=== PATIENT | female | born 2000 | race African-American/Black ===

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

== ENCOUNTER 2019-07-31 16:36 | Emergency (ER) | payer MEDICAID, OTHER ==
[~2019-07-31] VITALS: Ht 160 cm; Wt 42.6 kg
[~2019-07-31 16:36] MED LIST: CETI-90 PO; HYDR28CR14 TOP
[2019-07-31 16:38] VITALS: BP 112/65
[2019-07-31] MEDS ORDERED: IBUP-1984 PO (17:40)
[2019-07-31] MEDS ORDERED: AMOX-422 PO (17:40)
== END 2019-07-31 17:49 | disposition home or self-care (01) ==
LOC: ER 16:37
DX: K11.20 Sialoadenitis, unspecified (principal); Z88.8 Allergy status to other drugs, medicaments and biological substances; Z79.2 Long term (current) use of antibiotics; Z79.899 Other long term (current) drug therapy
CPT/HCPCS: 99283

== ENCOUNTER 2021-01-09 18:51 | Emergency (ER) | payer MEDICAID ==
[~2021-01-09] VITALS: Ht 160 cm; Wt 45.0 kg
[2021-01-09 19:12] VITALS: BP 129/79
[2021-01-09] MEDS ORDERED: CefTRIAXone 1000mg IM Kit (w/lidocaine diluent) IM ONE (19:15)
[2021-01-09] MEDS ORDERED: azithromycin 250mg tablet PO ONE (19:15)
[2021-01-09 19:44] LABS: URINE HCG NEGATIVE (NEG)
[2021-01-09 19:51] LABS: CLARITY,URINE CLOUDY (Clear); COLOR,URINE YELLOW (Yellow); GLUCOSE, URINE NEGATIVE (Neg); KETONES,URINE NEGATIVE (Neg); LEUKOCYTE ESTERASE ,URINE SMALL (Neg); NITRITES, URINE NEGATIVE (Neg); OCCULT BLOOD,URINE NEGATIVE (Neg); PROTEIN,URINE NEGATIVE (Neg); UA COLLECTION TYPE VOIDED; UROBILINOGEN,URINE 0.2 E.U/dL (0.2-1.0)
[2021-01-09 20:00] LABS: MUCUS STRANDS MODERATE /LPF (Neg); SQUAMOUS EPITHELIAL CELL,UR MANY /LPF (FEW)
[2021-01-09 20:03] LABS: BACTERIA,URINE 3+ /HPF (Neg)
== END 2021-01-09 21:56 | disposition home or self-care (01) ==
LOC: ER 18:52
DX: A64 Unspecified sexually transmitted disease (principal); N93.9 Abnormal uterine and vaginal bleeding, unspecified; R10.30 Lower abdominal pain, unspecified; R53.83 Other fatigue; M54.5 Low back pain; Z88.6 Allergy status to analgesic agent; Z79.899 Other long term (current) drug therapy
CPT/HCPCS: 36415; 81001; 81025; 87491; 87591; 96372; 99283; J0696

== ENCOUNTER 2021-07-06 12:40 | Emergency (ER) | payer MEDICAID ==
[~2021-07-06] VITALS: Ht 160 cm; Wt 45.9 kg
[2021-07-06 12:50] VITALS: BP 108/76
[2021-07-06 14:19] LABS: CLARITY,URINE CLOUDY (Clear); COLOR,URINE RED (Yellow)
[2021-07-06 14:20] LABS: URINE HCG NEGATIVE (NEG)
[2021-07-06 14:32] LABS: UA COLLECTION TYPE NON-SPECIFIED
--- NOTE | 2021-07-06 14:34 | NUR ---
UA REJECTED FOR CULTURE. [id number]
[2021-07-06 14:35] LABS: BACTERIA,URINE 4+ /HPF (Neg); MUCUS STRANDS FEW /LPF (Neg); RBC,URINE TNTC /HPF (0-2)
[2021-07-06 14:36] LABS: SQUAMOUS EPITHELIAL CELL,UR MANY /LPF (FEW)
[2021-07-06] MEDS ORDERED: METR-159 PO (16:28)
[2021-07-06] MEDS ORDERED: metroNIDAZOLE 500mg tablet PO ONE (16:40)
== END 2021-07-06 17:12 | disposition home or self-care (01) ==
LOC: ER 12:42
DX: A64 Unspecified sexually transmitted disease (principal); N76.0 Acute vaginitis; Z72.89 Other problems related to lifestyle; Z88.8 Allergy status to other drugs, medicaments and biological substances; Z79.2 Long term (current) use of antibiotics; Z79.899 Other long term (current) drug therapy
CPT/HCPCS: 81001; 81025; 99283

== ENCOUNTER 2021-12-12 21:01 | Emergency (ER) | payer SELFPAY ==
[~2021-12-12] VITALS: Ht 160 cm; Wt 47.0 kg
[2021-12-12 22:00] LABS: BASOPHILS % (AUTO) 0.4 % (0-1); EOSINOPHILS # (AUTO) 0.1 X10'3 (0-0.9); EOSINOPHILS % (AUTO) 1.2 % (0-6); HEMATOCRIT 44.3 % (35.0-45.0); HEMOGLOBIN 14.4 g/dl (12.0-16.0); LYMPHOCYTES # (AUTO) 2.7 X10'3 (1.1-4.8); LYMPHOCYTES % (AUTO) 37.8 % (21-51); MEAN CORPUSCULAR HEMOGLOBIN 25.5 PG (27.0-31.0); MEAN CORPUSCULAR HGB CONC 32.5 g/dL (33.0-36.5); MEAN CORPUSCULAR VOLUME 78.3 FL (78-98); MEAN PLATELET VOLUME 8.7 FL (7.4-10.4); MONOCYTES # (AUTO) 0.8 X10'3 (0-0.9); MONOCYTES % (AUTO) 10.8 % (2-12); NEUTROPHILS # (AUTO) 3.5 X10'3 (1.8-7.7); NEUTROPHILS % (AUTO) 49.8 % (42-75); PLATELET COUNT 246 X10'3 (140-440); RED BLOOD COUNT 5.66 X10'6 (4.20-5.60); RED CELL DISTRIBUTION WIDTH 16.1 % (11.5-14.5); WHITE BLOOD COUNT 7.1 X10'3 (4.5-11.0)
[2021-12-12 22:06] LABS: URINE HCG NEGATIVE (NEG)
[2021-12-12 22:15] LABS: ALANINE AMINOTRANSFERASE 15 U/L (12-78); ALBUMIN 4.3 G/DL (3.4-5.0); ALBUMIN/GLOBULIN RATIO 1.1 (1.1-1.5); ALKALINE PHOSPHATASE 53 IU/L (46-116); ANION GAP 9 (8-16); ASPARTATE AMINO TRANSFERASE 17 U/L (10-37); BILIRUBIN,TOTAL 0.4 MG/DL (0.1-1.0); BLOOD UREA NITROGEN 10 MG/DL (7-18); BUN/CREATININE RATIO 17.2 (6.6-38.0); CALCIUM 8.9 MG/DL (8.5-10.1); CHLORIDE 105 MMOL/L (99-107); CREATININE 0.58 MG/DL (0.40-0.90); GLUCOSE 99 MG/DL (70-104); LIPASE 55 U/L (73-393); POTASSIUM 3.8 MMOL/L (3.5-5.1); SODIUM 139 MMOL/L (135-145); TOTAL CARBON DIOXIDE 24.6 MMOL/L (24-32); TOTAL PROTEIN 8.3 G/DL (6.4-8.2); eGFR > 90 ML/MIN
[2021-12-12 22:18] LABS: CLARITY,URINE CLEAR (Clear); COLOR,URINE YELLOW (Yellow); GLUCOSE, URINE NEGATIVE (Neg); KETONES,URINE 15 mg/dl (Neg); LEUKOCYTE ESTERASE ,URINE NEGATIVE (Neg); NITRITES, URINE NEGATIVE (Neg); OCCULT BLOOD,URINE NEGATIVE (Neg); PROTEIN,URINE NEGATIVE (Neg); UROBILINOGEN,URINE 0.2 E.U/dL (0.2-1.0)
[2021-12-12 22:22] LABS: UA COLLECTION TYPE CLN CATCH MIDSTREAM
[2021-12-13] MEDS ORDERED: normal saline 1000ML IV soln IVB ONE (00:25)
[2021-12-13] MEDS ORDERED: ondansetron/PF 4mg/2ml inj IV ONE ×2 (00:25→03:20)
[2021-12-13] MEDS: morphine 4 MG/ML inj SYRINge IV PRN ×2 (01:45→04:46)
[2021-12-13] MEDS ORDERED: CefTRIAXone 1000mg IM Kit (w/lidocaine diluent) IM STA (03:53)
[2021-12-13] MEDS ORDERED: METR-159 PO (03:56)
[2021-12-13] MEDS ORDERED: DOXY100C43 PO (03:56)
[2021-12-13 04:51] VITALS: BP 118/76
== END 2021-12-13 05:08 | disposition home or self-care (01) ==
LOC: ER 21:02
DX: N73.9 Female pelvic inflammatory disease, unspecified (principal); Z88.6 Allergy status to analgesic agent
CPT/HCPCS: 36415; 74176; 80053; 81003; 81025; 83690; 85025; 87491; 87591; 96361; 96372; 96374; 96376; 99284; J0696; J2270; J2405; J7030

== ENCOUNTER 2022-03-27 16:16 | Emergency (ER) | payer MEDICAID ==
[~2022-03-27] VITALS: Ht 165.1 cm; Wt 47.7 kg
[2022-03-27 16:31] VITALS: BP 116/54
[2022-03-27 16:57] LABS: BASOPHILS % (AUTO) 0.1 % (0-1); EOSINOPHILS % (AUTO) 0 % (0-6); HEMATOCRIT 39.7 % (35.0-45.0); HEMOGLOBIN 13.1 g/dl (12.0-16.0); LYMPHOCYTES # (AUTO) 1.2 X10'3 (1.1-4.8); LYMPHOCYTES % (AUTO) 10.3 % (21-51); MEAN CORPUSCULAR HEMOGLOBIN 26.5 PG (27.0-31.0); MEAN CORPUSCULAR HGB CONC 32.9 g/dL (33.0-36.5); MEAN CORPUSCULAR VOLUME 80.4 FL (78-98); MEAN PLATELET VOLUME 9.4 FL (7.4-10.4); MONOCYTES # (AUTO) 0.7 X10'3 (0-0.9); MONOCYTES % (AUTO) 5.8 % (2-12); NEUTROPHILS % (AUTO) 83.8 % (42-75); PLATELET COUNT 191 X10'3 (140-440); RED BLOOD COUNT 4.93 X10'6 (4.20-5.60); RED CELL DISTRIBUTION WIDTH 15.3 % (11.5-14.5)
[2022-03-27 16:58] LABS: URINE HCG POSITIVE (NEG)
[2022-03-27 17:00] LABS: CLARITY,URINE SLIGHTLY CLOUDY (Clear); COLOR,URINE YELLOW (Yellow); GLUCOSE, URINE NEGATIVE (Neg); KETONES,URINE 40 mg/dl (Neg); LEUKOCYTE ESTERASE ,URINE NEGATIVE (Neg); NITRITES, URINE NEGATIVE (Neg); OCCULT BLOOD,URINE NEGATIVE (Neg); PROTEIN,URINE NEGATIVE (Neg); UROBILINOGEN,URINE 0.2 E.U/dL (0.2-1.0)
[2022-03-27 17:16] LABS: UA COLLECTION TYPE CLN CATCH MIDSTREAM
[2022-03-27 17:24] LABS: ALANINE AMINOTRANSFERASE 19 U/L (12-78); ALBUMIN/GLOBULIN RATIO 0.7 (1.1-1.5); ALKALINE PHOSPHATASE 54 IU/L (46-116); ANION GAP 11 (8-16); ASPARTATE AMINO TRANSFERASE 26 U/L (10-37); BILIRUBIN,TOTAL 0.4 MG/DL (0.1-1.0); BLOOD UREA NITROGEN 6 MG/DL (7-18); BUN/CREATININE RATIO 11.8 (6.6-38.0); CALCIUM 8.5 MG/DL (8.5-10.1); CHLORIDE 102 MMOL/L (99-107); CREATININE 0.51 MG/DL (0.40-0.90); GLUCOSE 116 MG/DL (70-104); LIPASE 55 U/L (73-393); POTASSIUM 3.6 MMOL/L (3.5-5.1); SODIUM 135 MMOL/L (135-145); TOTAL CARBON DIOXIDE 22.2 MMOL/L (24-32); TOTAL PROTEIN 7.3 G/DL (6.4-8.2); eGFR > 90 ML/MIN
[2022-03-27 17:36] LABS: MUCUS STRANDS MANY /LPF (Neg); SQUAMOUS EPITHELIAL CELL,UR MANY /LPF (FEW)
[2022-03-27 17:43] LABS: BACTERIA,URINE 1+ /HPF (Neg); RBC,URINE 0-2 /HPF (0-2); WBC,URINE 20-30 /HPF (0-4)
[2022-03-27 17:44] LABS: TRANSITIONAL EPI CELLS,URINE FEW /HPF
--- NOTE | 2022-03-27 18:03 | NUR ---
Urine rejected for culture.
== END 2022-03-27 23:27 | disposition left against medical advice (07) ==
LOC: ER 16:16
DX: O26.891 Other specified pregnancy related conditions, first trimester (principal); R10.9 Unspecified abdominal pain; Z53.21 Procedure and treatment not carried out due to patient leaving prior to being seen by health care provider; Z3A.01 Less than 8 weeks gestation of pregnancy
CPT/HCPCS: 36415; 80053; 81001; 81025; 83690; 85025

== ENCOUNTER 2023-01-16 09:31 | Emergency (ER) | payer MEDICAID ==
[~2023-01-16] VITALS: Ht 162.6 cm; Wt 47.7 kg
[2023-01-16 10:14] VITALS: TEMP 98.4
[2023-01-16 10:58] LABS: BILIRUBIN,URINE NEGATIVE (Neg); CLARITY,URINE CLEAR (Clear); COLOR,URINE YELLOW (Yellow); GLUCOSE, URINE NEGATIVE (Neg); KETONES,URINE NEGATIVE (Neg); LEUKOCYTE ESTERASE ,URINE NEGATIVE (Neg); NITRITES, URINE NEGATIVE (Neg); OCCULT BLOOD,URINE NEGATIVE (Neg); PROTEIN,URINE NEGATIVE (Neg); UROBILINOGEN,URINE 0.2 E.U/dL (0.2-1.0)
[2023-01-16 10:59] LABS: UA COLLECTION TYPE CLN CATCH MIDSTREAM
[2023-01-16 11:30] LABS: BASOPHILS % (AUTO) 0.4 % (0-1); EOSINOPHILS # (AUTO) 0.1 X10'3 (0-0.9); EOSINOPHILS % (AUTO) 1.4 % (0-6); HEMOGLOBIN 11.8 g/dl (12.0-16.0); LYMPHOCYTES # (AUTO) 2.3 X10'3 (1.1-4.8); LYMPHOCYTES % (AUTO) 42.6 % (21-51); MEAN CORPUSCULAR HGB CONC 31.8 g/dL (33.0-36.5); MEAN CORPUSCULAR VOLUME 69.1 FL (78-98); MEAN PLATELET VOLUME 8.9 FL (7.4-10.4); MONOCYTES # (AUTO) 0.6 X10'3 (0-0.9); MONOCYTES % (AUTO) 11.2 % (2-12); NEUTROPHILS # (AUTO) 2.4 X10'3 (1.8-7.7); NEUTROPHILS % (AUTO) 44.4 % (42-75); PLATELET COUNT 191 X10'3 (140-440); RED BLOOD COUNT 5.36 X10'6 (4.20-5.60); RED CELL DISTRIBUTION WIDTH 18.4 % (11.5-14.5); WHITE BLOOD COUNT 5.3 X10'3 (4.5-11.0)
[2023-01-16 11:46] LABS: ALANINE AMINOTRANSFERASE 13 U/L (12-78); ALBUMIN 3.8 G/DL (3.4-5.0); ALBUMIN/GLOBULIN RATIO 1.1 (1.1-1.5); ALKALINE PHOSPHATASE 52 IU/L (46-116); ANION GAP 4 (8-16); ASPARTATE AMINO TRANSFERASE 12 U/L (10-37); BILIRUBIN,TOTAL 0.3 MG/DL (0.1-1.0); BLOOD UREA NITROGEN 9 MG/DL (7-18); BUN/CREATININE RATIO 19.1 (10.0-20.0); CHLORIDE 106 MMOL/L (99-107); CREATININE 0.47 MG/DL (0.40-0.90); GLUCOSE 101 MG/DL (70-104); LIPASE 26 U/L (16-77); POTASSIUM 3.9 MMOL/L (3.5-5.1); SODIUM 138 MMOL/L (135-145); TOTAL CARBON DIOXIDE 27.7 MMOL/L (24-32); TOTAL PROTEIN 7.4 G/DL (6.4-8.2); eCRCL 140 ML/MIN; eGFR > 90 ML/MIN
[2023-01-16 13:59] VITALS: BP 135/87; PULSE 70; RESP 16; O2SAT 100
[2023-01-16 14:09] LABS: ANISOCYTOSIS 2+; ELLIPTOCYTES 1+; MICROCYTOSIS 2+; PLATELET ESTIMATE NORMAL
[2023-01-16 14:10] LABS: SCHISTOCYTES FEW
[2023-01-16] MEDS ORDERED: MECL-302 PO (15:49)
== END 2023-01-16 16:36 | disposition home or self-care (01) ==
LOC: ER 09:32
DX: H81.13 Benign paroxysmal vertigo, bilateral (principal); Z88.6 Allergy status to analgesic agent; Z79.899 Other long term (current) drug therapy
CPT/HCPCS: 36415; 80053; 81003; 83690; 85008; 85025; 99283